=== PATIENT | female | born 1970 | race Caucasian/White ===

== ENCOUNTER 2020-09-09 13:37 | Day surgery (SDC) | payer BC ==
[~2020-09-09 13:37] MED LIST: Bupivacaine 25%/EPINEPHrine/PF 30 ML ONE; Glycopyrrolate 0.2 MG/ML SDV ONE; Ketorolac 30 MG/ML SDV ONE; Lactated Ringers 1,000 ML IV SCH; Lidocaine 2% 5 ML SDV ONE; Midazolam 1 MG/ML 2 ML SDV ONE; Ondansetron 4 MG/2 ML SDV ONE; Propofol 200 MG/20 ML SDV ONE; fentaNYL 100 MCG/2 ML SDV ONE
--- NOTE | 2020-09-09 14:07 | PCM.PREANE ---
Preanesthetic Assessment - Anesthesia/Transfusion/Family Hx Anesthesia History: Prior Anesthesia Without Reaction Other Type of Anesthesia Reaction Comment: Denies any known problems in the past Family History of Anesthesia Reaction: No Transfusion History: No Prior Transfusion(s) - Review of Systems General: No Symptoms Pulmonary: No Symptoms Cardiovascular: No Symptoms Gastrointestinal: No Symptoms Neurological: No Symptoms Other: Reports: None - Physical Assessment NPO Status Date: 09/08/20 Vital Signs: Last Vital Signs Temp 98.2 F 09/09/20 13:50 Pulse 78 09/09/20 13:50 Resp 15 09/09/20 13:50 BP 129/85 09/09/20 13:50 Pulse Ox 99 09/09/20 13:50 Height: 5 ft 4 in Weight: 79.379 kg ASA Class: 2 Mental Status: Alert & Oriented x3 Airway Class: Mallampati = 3 Dentition: Reports: Normal Dentition ROM/Head Extension: Full Lungs: Clear to Auscultation, Normal Respiratory Effort Cardiovascular: Regular Rate, Regular Rhythm - Lab Values: Laboratory Last Values SARS-CoV-2 RNA ([facility]) NEGATIVE (NEGATIVE) 09/09/20 12:35 - Allergies Allergies/Adverse Reactions: Allergies Allergy/AdvReac Type Severity Reaction Status Date / Time No Known Allergies Allergy Verified 09/08/20 08:39 - Blood Blood Available: No - Anesthesia Plan Pre-Op Medication Ordered: None - Acknowledgements Anesthesia Type Planned: General Anesthesia Pt an Appropriate Candidate for the Planned Anesthesia: Yes Alternatives and Risks of Anesthesia Discussed w Pt/Guardian: Yes Pt/Guardian Understands and Agrees with Anesthesia Plan: Yes Additional Comments: PMH: Crohns disease, most recent flare was 5 months ago, smoking PLAN: ga/lma PreAnesthesia Questionnaire HEENT History: Reports: Other (See Below) Other HEENT History: wears glasses, has permanent lower bridge Cardiovascular History: Reports: None Respiratory History: Reports: None Gastrointestinal History: Reports: Other (See Below) Other Gastrointestinal History: Crohns Genitourinary History: Reports: None LEGAL SPECIALIST History: Reports: Musculoskeletal History: Reports: Fracture Other Musculoskeletal History: hx fx foot Neurological History: Reports: None Psychiatric History: Reports: Other (See Below) Other Psychiatric History: takes venlafaxine for menapause symptoms Endocrine/Metabolic History: Reports: None Hematologic History: Reports: None Immunologic History: Reports: None Oncologic (Cancer) History: Reports: None Dermatologic History: Other Dermatologic History: reddened & tender area to left breast - Past Surgical History Head Surgeries/Procedures: Reports: None HEENT Surgical History: Reports: None Cardiovascular Surgical History: Reports: None Respiratory Surgical History: Reports: None GI Surgical History: Reports: None Female Surgical History: Reports: Breast Biopsy, Section, Tubal Ligation Endocrine Surgical History: Reports: None Neurological Surgical History: Reports: None Musculoskeletal Surgical History: Reports: None Oncologic Surgical History: Reports: None Dermatological Surgical History: Reports: None - SUBSTANCE USE Tobacco Use Status *Q: Current Every Day Tobacco User Tobacco Use Within Last Twelve Months: Cigarettes - HOME MEDS Home Medications: Home Meds Acetaminophen [Tylenol Extra Strength] 3 tab PO ASDIRECTED PRN 09/08/20 [History] Acetaminophen/oxyCODONE [Percocet 325-5 MG] 1 tab PO ASDIRECTED PRN 09/08/20 [History] Adalimumab [Humira(Cf) Pen Crohn's-Uc-Hs] 40 mg SUBCUT ASDIRECTED 09/08/20 [History] Cholecalciferol (Vitamin D3) [Vitamin D3] 1 tab PO DAILY 09/08/20 [History] Multivitamin 1 tab PO DAILY 09/08/20 [History] Venlafaxine [Effexor XR] 37.5 mg PO DAILY 09/08/20 [History] cephALEXin [Cephalexin] 500 mg PO TID 09/08/20 [History] - CURRENT (IN HOUSE) MEDS Current Meds: Current Medications Lactated Ringer's (Ringers, Lactated) 1,000 mls @ 125 mls/hr IV ASDIRECTED BHAVIN Cefazolin Sodium/Dextrose 1 gm (/ Premix) 50 mls @ 100 mls/hr IV ONETIME ONE Stop: 09/10/20 11:11 Discontinued Medications Fentanyl (Sublimaze) Confirm Administered Dose 100 mcg .ROUTE .STK-MED ONE Stop: 09/09/20 12:40 Glycopyrrolate (Robinul) Confirm Administered Dose 0.2 mg .ROUTE .STK-MED ONE Stop: 09/09/20 12:41 Bupivacaine HCl/Epinephrine Bitart (Sensorc Mpf 0.25%-Epi 1:[id number]) Confirm Administered Dose 30 mls @ as directed .ROUTE .STK-MED ONE Stop: 09/09/20 12:59 Ketorolac Tromethamine (Toradol) Confirm Administered Dose 30 mg .ROUTE .STK-MED ONE Stop: 09/09/20 12:41 Lidocaine (Xylocaine-Mpf 2%) Confirm Administered Dose 5 ml .ROUTE .STK-MED ONE Stop: 09/09/20 12:41 Midazolam HCl (Versed 1 Mg/Ml) Confirm Administered Dose 2 mg .ROUTE .STK-MED ONE Stop: 09/09/20 12:41 Ondansetron HCl (Zofran) Confirm Administered Dose 4 mg .ROUTE .STK-MED ONE Stop: 09/09/20 12:41 Propofol (Diprivan 20 Ml) Confirm Administered Dose 200 mg .ROUTE .STK-MED ONE Stop: 09/09/20 12:39
[2020-09-09] MEDS ORDERED: Sodium Chloride 0.9% 20 ML ONE (14:26)
[2020-09-09] MEDS ORDERED: ceFAZolin 1 GM Vial ONE (14:26)
[2020-09-09] MEDS ORDERED: fentaNYL 100 MCG/2 ML SDV IVPUSH PRN (15:00)
[2020-09-09] MEDS ORDERED: Acetaminophen 1,000 MG in Premix Bag 1 BAG IV PRN (15:00)
--- NOTE | 2020-09-09 15:58 | PCM.OPNOTE ---
- General Post-Op/Procedure Note Date of Surgery/Procedure: 09/09/20 Operative Procedure(s): l breast i/d and bx Findings: cavity directly underneath L breast was drainage and irrigated; bx done breast tissue and skin; [id number] Pre Op Diagnosis: L breast recurrent infection Post-Op Diagnosis: Same Anesthesia Technique: General ET Tube Primary Surgeon: Cesar Kruse Pathology: sent Complications: None Condition: Good Free Text/Narrative:: Intake & Output 09/09/20 09/09/20 09/09/20 06:59 14:59 22:59 Intake Total 800 Balance 800
[2020-09-09] MEDS ORDERED: Acetaminophen/oxyCODONE 325-5 MG Tab PO PRN (16:00)
--- NOTE | 2020-09-09 16:10 | PCM.POSTAN ---
POST ANESTHESIA ASSESSMENT - MENTAL STATUS Mental Status: Alert - VITAL SIGNS Vital Signs: Last Vital Signs Temp 36.6 C 09/09/20 15:15 Pulse 79 09/09/20 15:40 Resp 12 09/09/20 15:40 BP 126/82 09/09/20 15:40 Pulse Ox 96 09/09/20 15:40 - RESPIRATORY Respiratory Status: Respiratory Rate WNL - CARDIOVASCULAR CV Status: Pulse Rate WNL - GASTROINTESTINAL GI Status: No Symptoms - POST OP HYDRATION Hydration Status: Adequate & Stable
--- NOTE | 2020-09-09 16:47 | PCM48HPAN ---
Post Anesthesia Note - EVALUATION WITHIN 48HRS OF ANESTHETIC Vital Signs in Normal Range: Yes Patient Participated in Evaluation: Yes Respiratory Function Stable: Yes Airway Patent: Yes Cardiovascular Function Stable: Yes Hydration Status Stable: Yes Pain Control Satisfactory: Yes Nausea and Vomiting Control Satisfactory: Yes Mental Status Recovered: Yes Vital Signs: Last Vital Signs Temp 36.1 C 09/09/20 15:50 Pulse 61 09/09/20 16:05 Resp 15 09/09/20 16:05 BP 112/75 09/09/20 16:05 Pulse Ox 99 09/09/20 16:05
--- NOTE | 2020-09-09 18:38 | OR ---
SURGEON: Cesar Kruse MD DATE OF PROCEDURE: 09/09/2020 PREOPERATIVE DIAGNOSIS: Left breast infection. POSTOPERATIVE DIAGNOSIS: Left breast infection. PROCEDURE PERFORMED: Incision and drainage and biopsy of the left breast. PRIMARY SURGEON: Cesar Kruse MD COMPLICATIONS: None. FINDINGS: Ultrasound suggests a pocket of 3 x 3 cm collection under the nipple. We found a cavity, but I am not quite sure that is so much of a collection. The cavity was drained and the surrounding tissue was biopsied and the skin was biopsied. DESCRIPTION OF PROCEDURE: The patient was taken to the operating room and placed in a supine position. Upon induction of general endotracheal anesthesia, the patient's left breast prepped and draped in a sterile fashion. The left breast was a little bit erythematous, but it is much much less compared to the time seen in the office. An ultrasound suggested at 9 o'clock area, there is a cavity, a complex cavity of 3 x 3 cm. So the breast was infiltrated with 1% lidocaine with epi, and using a skin scalpel, an incision right at the areola from 8 o'clock to 12 o'clock was carried out and continued dissection all the way past the nipple, underneath the nipple, and encountered the cavity. There was some small collection, purulent material, and was Gram stained, C and S, and also a little bit nipple discharge and Gram stained. Following extensive irrigation, the breast tissue was biopsied in several places and one of them right beneath the nipple and that one was oriented with stitches, long and short. Also biopsied under the nipple and also biopsied from previous scar and also took a little bit of skin. The wound was loosely closed with 2-0 Ethilon over a Eleanor drain and followed with appropriate dressing. The patient tolerated the procedure well. There were no intraoperative complication. Dr. Kruse was present through the whole procedure. DANNY / REED /[id number]
[2020-09-10] MEDS ORDERED: ceFAZolin 1 GM in Premix Bag 1 BAG IV ONE (10:42)
== END 2020-09-09 16:35 | disposition home or self-care (01) ==
LOC: MW.SDS 13:37
PROVIDERS: ATTEND Surgery
DX: N61.0 Mastitis without abscess (principal); F17.210 Nicotine dependence, cigarettes, uncomplicated; K50.90 Crohn's disease, unspecified, without complications; N63.0 Unspecified lump in unspecified breast; Z79.899 Other long term (current) drug therapy; Z01.812 Encounter for preprocedural laboratory examination; Z20.828 Contact with and (suspected) exposure to other viral communicable diseases; Z98.890 Other specified postprocedural states
CPT/HCPCS: 19020; 19101; 87070; 87075; 87205; 87635; A9270; J0690; J1885; J2001; J2250; J2405; J2704; J3490; J7120; J3010; U0002